=== PATIENT | female | born 1955 | race Caucasian/White ===

== ENCOUNTER 2016-11-27 10:40 | Emergency (ER) | payer OTHER ==
[2016-11-27 10:53] VITALS: BP 148/71
[2016-11-27] MEDS ORDERED: MECLIZINE 12.5 MG TABLET PO STA (11:24)
--- NOTE | 2016-11-27 11:25 | ED Physician Documentation ---
History of Present Illness - Stated complaint Stated Complaint: DIZZINESS - Chief complaint Chief Complaint: Neuro - History obtained from History obtained from: Patient - History of Present Illness Timing: How many weeks ago (1) - Additonal information Additional information: The patient is a 61-year-old insulin-dependent diabetic female who presents with dizziness which she describes as a spinning sensation or feeling off balance. She has had similar symptoms intermittently for the past week, but it became worse this morning. She feels like her left ear is plugged. She denies headache, fever, sore throat, nausea or vomiting. She denies lightheadedness, chest pain, or shortness of breath. She denies history of similar symptoms in the past. Review of Systems Constitutional: denies: Fever Eyes: denies: Irritation Ears: reports: Other (Left ear feels plugged.). denies: Tinnitus/ringing Nose: denies: Congestion, Sinus pressure / pain Throat: denies: Sore throat Cardiac: denies: Chest pain / pressure Respiratory: denies: Dyspnea, Cough GI: denies: Abdominal Pain, Nausea, Vomiting : denies: Dysuria Skin: denies: Rash Musculoskeletal: denies: Back pain Neurologic: denies: Focal weakness, Numbness, Headache PD PAST MEDICAL HISTORY - Past Medical History Cardiovascular: Hypertension, High cholesterol Respiratory: Sleep apnea, CPAP use Neuro: None Endocrine/Autoimmune: Type 2 diabetes, HyPOthyroidism GI: None : None HEENT: Other Psych: Depression Musculoskeletal: None Derm: None - Past Surgical History Past Surgical History: Yes General: Cholecystectomy, Splenectomy /[employer]: Hysterectomy - Present Medications Home Medications: Ambulatory Orders Medication Instructions Recorded Confirmed Aspirin [Aspir 81] 81 mg PO DAILY 07/09/12 11/28/15 Levothyroxine [Synthroid] 150 mcg PO DAILY 07/09/12 11/28/15 Metformin HCl 1,000 mg PO BID 07/09/12 11/28/15 Simvastatin 20 mg PO DAILY 07/09/12 11/28/15 Insulin Glargine,Hum.rec.anlog 20 unit SQ QPM 11/28/15 11/28/15 [Lantus] Insulin Glargine,Hum.rec.anlog 35 units SQ DAILY 11/28/15 11/28/15 [Lantus] Loratadine [Claritin] 10 mg PO DAILY 11/28/15 11/28/15 Multivit-Min/Iron Fum/Folic AC 1 tab PO DAILY 11/28/15 11/28/15 [Ohijd-Emdiphd-Wxfebiqi Tablet] Omeprazole 20 mg PO DAILY 11/28/15 11/28/15 Telmisartan [Micardis] 80 mg PO DAILY 11/28/15 11/28/15 Venlafaxine HCl [Effexor Xr] 150 mg PO DAILY 11/28/15 11/28/15 amLODIPine [Norvasc] 5 mg PO DAILY 11/28/15 11/28/15 Meclizine [Antivert] 25 mg PO Q6H #20 tablet 11/27/16 Promethazine [Phenergan] 25 - 50 mg PO Q6H PRN #10 tab 11/27/16 - Allergies Allergies/Adverse Reactions: Allergies Allergy/AdvReac Type Severity Reaction Status Date / Time No Known Drug Allergies Allergy Verified 11/27/16 10:53 - Social History Does the pt smoke?: No Smoking Status: Never smoker Does the pt drink ETOH?: No Does the pt have substance abuse?: No - Immunizations Immunizations are current?: Yes - POLST Patient has POLST: No PD ED PE NORMAL - Vitals Vital signs reviewed: Yes (Systolic hypertension initially.) - General General: Alert and oriented X 3, Well developed/nourished - HEENT HEENT: Atraumatic, EOMI, Ears normal, Moist mucous membranes, Pharynx benign, Other (Hears fingers rubbing equally well in both ears.) - Neck Neck: Supple, no meningeal sign, No adenopathy, No JVD - Cardiac Cardiac: RRR, No murmur - Respiratory Respiratory: No respiratory distress, Clear bilaterally - Abdomen Abdomen: Soft, Non tender - Back Back: No CVA TTP - Derm Derm: No rash - Extremities Extremities: No edema, No calf tenderness / cord - Neuro Neuro: Alert and oriented X 3, No motor deficit, No sensory deficit, Normal speech, Other (No nystagmus.) Results - Vitals Vitals: Oxygen O2 Source Room air PD MEDICAL DECISION MAKING - ED course Complexity details: re-evaluated patient, considered differential, d/w patient, d/w family ED course: The patient's presentation is most consistent with peripheral vertigo. There is no evidence of otitis media or foreign debris in the external ear canal. Her presentation does not suggest central etiology of her vertigo. Treatment in the emergency department included administration of meclizine 25 mg orally. On reevaluation she reported complete resolution of her symptoms. She demonstrated the ability to ambulate without dizziness. She is being discharged with a prescription for meclizine. I discussed with her and her the diagnosis, symptomatic treatment and outpatient follow-up, as well as potentially worrisome signs or symptoms that should prompt reevaluation in the emergency department. Departure - Departure Disposition: 01 Home, Self Care Clinical Impression: Vertigo, Dizziness Condition: Stable Instructions: ED Vertigo Unspecified Follow-Up: Chicho Sorto DO [Physician No Access] - Prescriptions: Meclizine [Antivert] 25 mg PO Q6H #20 tablet Promethazine [Phenergan] 25 - 50 mg PO Q6H PRN #10 tab PRN Reason: Nausea / Vomiting Comments: You can use meclizine as prescribed if needed for dizziness. You can use Phenergan as prescribed as needed for nausea. Follow up with your primary physician within 1-2 weeks. Call to schedule appointment. Return to the emergency department if you develop increasing dizziness, persistent vomiting, or otherwise worsening symptoms. Discharge Date/Time: 11/27/16 12:17
[2016-11-27] MEDS ORDERED: MECLIZINE 12.5 MG TABLET PO ONE (11:32)
== END 2016-11-27 12:17 | disposition home or self-care (01) ==
LOC: ED 10:40
DX: H81.399 Other peripheral vertigo, unspecified ear (principal); E11.9 Type 2 diabetes mellitus without complications; Z79.4 Long term (current) use of insulin; Z79.84 Long term (current) use of oral hypoglycemic drugs; I10 Essential (primary) hypertension; E03.9 Hypothyroidism, unspecified; E78.00 Pure hypercholesterolemia, unspecified; G47.30 Sleep apnea, unspecified; Z79.82 Long term (current) use of aspirin
CPT/HCPCS: 99283; A9270